=== PATIENT | male | born 1970 | race Caucasian/White ===

== ENCOUNTER 2022-06-14 13:37 | Emergency (ER) | payer MEDICAID ==
[~2022-06-14] VITALS: Ht 188 cm; Wt 79.4 kg
--- NOTE | 2022-06-14 13:43 | NUR ---
ARRIVAL PT ARRIVED AMBULATORY TO ED 4 WITH C/O N/V FOR 2 DAYS. PT STATES TH [employer] HE WAS WORKING FOR FED HIM CAT FOOD. VITALS TAKEN AND DR NOTIFIED.
[2022-06-14 13:51] VITALS: BP 138/103
--- NOTE | 2022-06-14 14:23 | NUR ---
AMA PT REFUSED LABS, URINE, URINE DRUG SCREEN AND VERBALIZED TO DR BOSS. PT STATES HE DIDNT WANT TO COME HERE AND JUST NEEDS TO EAT BECAUSE HE IS HUNGRY. PT SIGNED AMA FORM AND AMBULATED OFF UNIT.
--- NOTE | 2022-06-14 15:19 | ER.PDOC ---
General Chief Complaint: Nausea,Vomiting,Diarrhea Stated Complaint: POSSIBLE FOOD POISONING Time seen by MD: 14:10 Source: patient Exam Limitations: no limitations History of Present Illness Initial Comments Nausea, vomiting and diarrhea today. No fever or chills. He denies abdominal pain. Severity/Quality: mild Associated Symptoms (vomiting): mild vomiting Associated Symptoms (diarrhea): watery Allergies: Coded Allergies: No Known Allergies (Unverified , 06/14/22) Vital Signs First Vital Signs Date Time Temp Pulse Resp B/P (MAP) Pulse Ox O2 Delivery O2 Flow Rate FiO2 06/14/22 13:51 98.6 111 18 138/103 (115) 97 Room Air* 0 21 Last Vital Signs Date Time Temp Pulse Resp B/P (MAP) Pulse Ox O2 Delivery O2 Flow Rate FiO2 06/14/22 13:51 98.6 111 18 06/14/22 13:51 97 06/14/22 13:51 138/103 (115) Room Air* 0 21 Past Medical History Medical History: no pertinent history Surgical History: no surgical history Family History Significant Family History: no pertinent family hx Social History Smoking: greater than 1 pack/day Alcohol Use: none Drug Use: none Constitutional: no symptoms reported Respiratory: no symptoms reported Cardiovascular: no symptoms reported Gastrointestinal: see HPI Genitourinary: no symptoms reported All Other Systems: Reviewed and Negative Physical Exam General Appearance: No Apparent Distress, WD/WN, Anxious Neck: Non-Tender, Full Range of Motion, Supple, Normal Inspection Respiratory: chest non-tender, lungs clear, normal breath sounds, no respiratory distress, no accessory muscle use Cardiovascular: Normal Peripheral Pulses, Regular Rate, Rhythm, No Edema, No Gallop, No JVD, No Murmur Gastrointestinal: Normal Bowel Sounds, Non Tender, Soft Back: Normal Inspection, No CVA Tenderness, No Vertebral Tenderness Extremities: Normal Range of Motion, Non-Tender, Normal Inspection, No Pedal Edema, No Calf Tenderness, Normal Capillary Refill, Pelvis Stable Neurologic/Psychiatric: natural resource manager II-XII NML as Tested, No Motor/Sensory Deficits, Alert, Normal Mood/Affect, Oriented x 3 Skin: Normal Color, Warm/Dry Lymphatic: No Adenopathy Results/Orders Results/Orders Vital Signs Date Time Temp Pulse Resp B/P (MAP) Pulse Ox O2 Delivery O2 Flow Rate FiO2 06/14/22 13:51 98.6 111 18 06/14/22 13:51 98.6 111 18 97 06/14/22 13:51 98.6 111 18 138/103 (115) 97 Room Air* 0 21 Progress Progress Patient's vital signs show that he is tachycardic. I told him that I will order labs which include CBC, chemistry, lipase and urinalysis. I also wanted to order IV fluids because of possible dehydration. Patient refused, telling me that he did not want to be here but for his boss who made him to come. He signed and left AGAINST MEDICAL ADVICE. He understands that leaving AGAINST MEDICAL ADVICE will result in worsening condition and . ER DEPART Departure Time of Disposition: 14:21 Disposition: 07 LEFT AGAINST MEDICAL ADVICE Impression: Primary Impression: Gastroenteritis Additional Impression: Dehydration Condition: Against Medical Advice Referrals: PCP,UNKNOWN (PCP) PRIMARY CARE PROVIDER Duration or Time Spent with Pa: 10 min Problem Qualifiers GERA SCRUGGS MD Jun 14, 2022 15:19
== END 2022-06-14 14:22 | disposition left against medical advice (07) ==
LOC: ER 13:37
DX: K52.9 Noninfective gastroenteritis and colitis, unspecified (principal); E86.0 Dehydration; F17.210 Nicotine dependence, cigarettes, uncomplicated
CPT/HCPCS: 99281